=== PATIENT | female | born 1990 | race Hispanic/Latino ===

== ENCOUNTER 2017-07-30 10:04 | Emergency (ER) | payer MEDICAID, OTHER ==
[~2017-07-30 10:04] MED LIST: ACET1TAB12 PO; DOCU-116 PO; IBUP-2077 PO
== END 2017-07-30 10:26 | disposition home or self-care (01) ==
LOC: EDH 10:04
DX: H10.021 Other mucopurulent conjunctivitis, right eye (principal)

== ENCOUNTER 2023-10-01 12:15 | Emergency (ER) | payer OTHER ==
[~2023-10-01] VITALS: Ht 154.9 cm; Wt 77.1 kg
[2023-10-01 13:22] LABS: BASOPHILS # (AUTO) 0.02 K/uL (0.00-0.20); BASOPHILS % (AUTO) 0.3 % (0.0-5.0); EOSINOPHILS # (AUTO) 0.22 K/uL (0.00-0.70); EOSINOPHILS % (AUTO) 2.9 % (0.0-8.0); HEMATOCRIT 36.9 % (36-48); IMMATURE GRANULOCYTE ABSOLUTE 0.03 K/uL (0-1); LYMPHOCYTES # (AUTO) 2.3 K/uL (1.0-4.8); MEAN CORPUSCULAR HEMOGLOBIN 27.7 pg (27.0-33.0); MEAN CORPUSCULAR HGB CONC 33.3 g/dL (32.0-36.0); MEAN CORPUSCULAR VOLUME 83.1 fL (79-99); MONOCYTES # (AUTO) 0.4 K/uL (0.1-1.0); MONOCYTES % (AUTO) 5.7 % (3.0-13.0); NEUTROPHILS # (AUTO) 4.5 K/uL (1.8-7.7); NEUTROPHILS % (AUTO) 59.7 % (40.0-77.0); PLATELET COUNT (AUTO) 267 K/uL (130-400); RED BLOOD CELL COUNT(AUTO) 4.44 MIL/uL (4.00-5.50); RED CELL DISTRIBUTION WIDTH 12.4 % (11.0-15.5); WHITE BLOOD COUNT (AUTO) 7.5 K/uL (4.8-10.8)
[2023-10-01 13:39] LABS: CREATININE 0.6 mg/dL (0.5-1.0)
[2023-10-01 13:43] LABS: ALBUMIN 3.8 g/dL (3.5-5.0); BILIRUBIN,TOTAL 0.2 mg/dL (0.2-1.0); TOTAL PROTEIN, SERUM 8.1 g/dL (6.0-8.3)
[2023-10-01 14:59] LABS: APPEARANCE,URINE CLEAR (CLEAR); BILIRUBIN,URINE NEGATIVE (NEGATIVE); COLOR,URINE YELLOW (YELLOW); GLUCOSE, URINE (UA) NEGATIVE (NEGATIVE); KETONES,URINE NEGATIVE (NEGATIVE); LEUKOCYTE ESTERASE ,URINE NEGATIVE Leu/uL (NEGATIVE); NITRATE,URINE NEGATIVE (NEGATIVE); OCCULT BLOOD,URINE LARGE (NEGATIVE); PH,URINE 5.5 (5.0-8.0); PROTEIN,URINE NEGATIVE (NEGATIVE); UROBILINOGEN,URINE 0.2 mg/dL (0.2-1.0)
[2023-10-01 15:03] LABS: HCG,QUALITATIVE URINE NEGATIVE (NEGATIVE)
[2023-10-01 15:05] LABS: ADD UA MICROSCOPIC YES
[2023-10-01 15:06] LABS: RBC,URINE 0-1 /HPF (0-1); WBC,URINE None Seen /HPF (0-1)
[2023-10-01 15:07] LABS: BACTERIA,URINE Rare /HPF (None Seen); MUCUS,URINE None Seen LPF (None Seen); SQUAMOUS EPITHELIAL CELL,UR 0-2 /HPF (0-2)
[2023-10-01] MEDS ORDERED: SUCR1TAB28 PO (15:46)
[2023-10-01] MEDS ORDERED: OMEP40CA21 PO (15:46)
[2023-10-01] MEDS: MAG/ALUM/SIMETH 30 ML UDCUP PO ONE (16:24)
[2023-10-01] MEDS: FAMOTIDINE 20MG TAB PO ONE (16:24)
[2023-10-01 16:31] VITALS: BP 128/72; PULSE 78; RESP 16; O2SAT 99
== END 2023-10-01 16:32 | disposition home or self-care (01) ==
LOC: EDH 12:15
DX: K29.00 Acute gastritis without bleeding (principal); Z79.899 Other long term (current) drug therapy
CPT/HCPCS: 36415; 80053; 81001; 81025; 83690; 85025